=== PATIENT | female | born 1960 | race Caucasian/White ===

== ENCOUNTER 2017-01-01 12:24 | Day surgery (SDC) | payer BC ==
[2006-05-18 18:47] VITALS: BP 103/54
[~2017-01-01] VITALS: Ht 175.4 cm; Wt 95.4 kg
[~2017-01-01 12:24] MED LIST: ASPIRIN 81M81 MG/TA2 PO; PREDNISONE20 MG PO; TOPROL XL 25MG25 MG; TOPROL XL 25MG25 MG PO
[2017-01-01 13:38] LABS: HEMATOCRIT 39.9 % (37.0-47.0); HEMOGLOBIN 13.5 g/dl (12.5-16.0); MEAN CELL VOLUME 84 fl (80.0-100.0); MEAN CORPUSCULAR HEMOGLOBIN 29 pg (27.0-31.0); MEAN CORPUSCULAR HGB CONC 34 g/dl (33.0-37.0); PLATELET COUNT 255 K/mm3 (130-400); RED BLOOD COUNT 4.74 M/mm3 (4.10-5.30); REDCELL DISTRIBUTION WIDTH-CV 12.9 % (11.5-14.5); WHITE BLOOD COUNT 9.3 K/mm3 (4.8-10.8)
[2017-01-01 13:42] LABS: INR 1.1 (0.8-3.0); PROTHROMBIN TIME 12.7 SECONDS (9.7-12.8)
[2017-01-01 13:49] LABS: CALCIUM 9.1 mg/dL (8.4-10.2); CREATININE, serum 0.53 mg/dL (0.52-1.25)
[2017-01-01 14:28] VITALS: BP 137/88; PULSE 126; TEMP 98.3
[2017-01-01 15:15] VITALS: BP 104/71; PULSE 84
[2017-01-01 15:30] VITALS: BP 117/73; PULSE 80
[2017-01-01 16:00] VITALS: BP 123/79; PULSE 82
[2017-01-01 16:15] VITALS: BP 118/70; PULSE 79
[2017-01-01] MEDS ORDERED: XARELTO20 MG PO (16:17)
== END 2017-01-01 16:35 ==
LOC: COL.CAR 12:24
PROVIDERS: Internal Medicine Cardiovascular Disease
DX: I48.0 Paroxysmal atrial fibrillation (principal); Q21.1 Atrial septal defect; I35.1 Nonrheumatic aortic (valve) insufficiency; I10 Essential (primary) hypertension; E66.9 Obesity, unspecified; Z87.891 Personal history of nicotine dependence
CPT/HCPCS: G9654; J2704; J3010

== ENCOUNTER 2017-01-31 10:31 | Day surgery (SDC) | payer BC ==
[~2017-01-31] VITALS: Ht 175.4 cm; Wt 95.0 kg
[2017-01-31] VITALS (9 sets, daily range): BP systolic 108–156; BP diastolic 67–120; PULSE 78–140; TEMP 98.1
[~2017-01-31 10:31] MED LIST changes: +XARELTO20 MG PO
[2017-01-31 11:03] LABS: HEMATOCRIT 42.9 % (37.0-47.0); HEMOGLOBIN 14.7 g/dl (12.5-16.0); MEAN CELL VOLUME 82 fl (80.0-100.0); MEAN CORPUSCULAR HEMOGLOBIN 28 pg (27.0-31.0); MEAN CORPUSCULAR HGB CONC 34 g/dl (33.0-37.0); MEAN PLATELET VOLUME 9.7 fl (7.4-10.4); PLATELET COUNT 269 K/mm3 (130-400); RED BLOOD COUNT 5.23 M/mm3 (4.10-5.30); REDCELL DISTRIBUTION WIDTH-CV 12.5 % (11.5-14.5); WHITE BLOOD COUNT 8.3 K/mm3 (4.8-10.8)
[2017-01-31 11:08] LABS: INR 1.7 (0.8-3.0); PROTHROMBIN TIME 19.2 SECONDS (9.7-12.8)
[2017-01-31 11:13] LABS: CALCIUM 9.5 mg/dL (8.4-10.2); CREATININE, serum 0.52 mg/dL (0.52-1.25); POTASSIUM 4.2 mmol/L (3.4-5.0)
[2017-01-31] MEDS ORDERED: ADVIL200 MG PO (11:15)
[2017-01-31] MEDS ORDERED: TAMBOCOR 1100 MG/TAB PO (12:55)
[2017-01-31] MEDS ORDERED: RESTORIL 1515 MG/CAP PO (12:55)
== END 2017-01-31 14:22 | disposition home or self-care (01) ==
LOC: COL.CAR 10:31
PROVIDERS: Internal Medicine Cardiovascular Disease
DX: I48.91 Unspecified atrial fibrillation (principal); Z79.01 Long term (current) use of anticoagulants
CPT/HCPCS: J2704

== ENCOUNTER → 2017-10-03 | Outpatient (CLI) | payer BC ==
[~2017-10-03] MED LIST changes: +ADVIL200 MG PO; +RESTORIL 1515 MG/CAP PO; +TAMBOCOR 1100 MG/TAB PO
== END ==
LOC: MC.RAD 09:20
DX: Z12.31 Encounter for screening mammogram for malignant neoplasm of breast (principal)

== ENCOUNTER 2018-12-30 16:09 | Inpatient (IN) | payer BC ==
[~2018-12-30] VITALS: Ht 175.3 cm; Wt 95.1 kg
[~2018-12-30 16:09] MED LIST changes: +BETAPACE 80MG80 MG PO; +TIAZAC360 MG PO
[2018-12-30] MEDS ORDERED: ASPIRIN 81M81 MG/TA2 PO (16:31)
[2018-12-30 16:34] LABS: BASO % 0.5 % (0.0-2.0); EOS # 0.1 (0.0-0.7); EOS % 1.8 % (0-4.0); GRAN # 4.4 (1.4-6.5); GRAN % 56.6 % (42.2-75.2); HEMATOCRIT 40.5 % (37.0-47.0); HEMOGLOBIN 14.1 g/dl (12.5-16.0); LYMPH # 2.7 (1.2-3.4); LYMPH % 35.1 % (20.0-51.0); MEAN CELL VOLUME 83 fl (80.0-100.0); MEAN CORPUSCULAR HEMOGLOBIN 29 pg (27.0-31.0); MEAN CORPUSCULAR HGB CONC 35 g/dl (33.0-37.0); MEAN PLATELET VOLUME 9.9 fl (7.4-10.4); MONO # 0.4 (0.1-0.6); MONO % 5.7 % (1.7-9.3); PLATELET COUNT 235 K/mm3 (130-400); RED BLOOD COUNT 4.88 M/mm3 (4.10-5.30); REDCELL DISTRIBUTION WIDTH-CV 12.6 % (11.5-14.5)
[2018-12-30 17:01] LABS: ALANINE AMINOTRANSFERASE 33 U/L (9-52); ALBUMIN 4.1 gm/dL (3.5-5.0); ALKALINE PHOSPHATASE 71 U/L (50-136); ANION GAP 9 mmol/L (7-16); AST,SGOT 28 U/L (15-37); BILIRUBIN,TOTAL 0.6 mg/dL (0.0-1.0); BLOOD UREA NITROGEN 7 mg/dL (7-17); CALCIUM 9.4 mg/dL (8.4-10.2); CARBON DIOXIDE 29 mmol/L (22-30); CHLORIDE 103 mmol/L (98-107); GLUCOSE 115 mg/dL (74-106); POTASSIUM 3.6 mmol/L (3.4-5.0); SODIUM 142 mmol/L (137-145); TOTAL PROTEIN 7.3 gm/dL (6.4-8.2)
[2018-12-30 17:09] LABS: INR 1.1 (0.8-3.0); PROTHROMBIN TIME 12.4 SECONDS (9.7-12.8)
[2018-12-30 17:17] LABS: PROLACTIN 36.7 ng/mL (3.0-18.6); TROPONIN-I < 0.012 ng/mL (0.000-0.035)
[2018-12-30 17:21] LABS: D-DIMER < 200.00 ng/mLDDu (200-230)
[2018-12-30 19:59] LABS: MAGNESIUM 1.9 mg/dL (1.6-2.3)
[2018-12-30 20:16] LABS: TROPONIN-I < 0.012 ng/mL (0.000-0.035)
--- NOTE | 2018-12-30 20:28 | NUR ---
Called over to ED at this time and received from from AP Christina.
[2018-12-30 20:35] VITALS: BP 139/91; PULSE 124
--- NOTE | 2018-12-30 20:35 | NUR ---
Patient arrives at this time via ED cart. Patient ambulates to unit bed. She is steady on her feet and independent. Patient lays down in bed. Applied unit monitoring equipment to patient and oriented her and Rody (daughter) to unit and room. Assessment complete. She is alert and oriented x4. Lungs are clear in all [place] bilaterally. HR and rhythm are irregular with only first heart sound heard. Patient is in afib with rates that come up as high as 140's. Bowel sounds are active x4. Patient has no complaints of pain, just mild intermittent headache, but states she does not want anything for it. No skin issues observed. Obtained emergency contact information of daughter and . Patient does have her purse here with $126 in it, she refuses safe at this time. Patient also has cell phone, smart watch, and engagement ring and wedding band on. Patient again refuses safe for these belongings. Patient educated on drips she is on. Claude () arrives at end of assessment. Patient has no further needs at this time. Will continue to monitor. Call light within reach.
--- NOTE | 2018-12-30 20:35 | NUR ---
Patient brought over from ED with Cardizem drip at 10mg/hr. Will continue at this dose for now.
[2018-12-30 20:45] VITALS: PULSE 124
[2018-12-30 20:48] VITALS: BP 139/91; PULSE 124; TEMP 98.7
[2018-12-30] MEDS ORDERED: FLONASE NASAL S16 GM NS (20:55)
--- NOTE | 2018-12-30 21:10 | NUR ---
ANALI Canas calls at this time and states we are changing the patient to an esmolol bolus and drip. Called back at 2113to notify that her HR has been in the 90's, but periodically will get as high as 140's, but immediately comes back down. Provider states to still frame changer to esmolol.
[2018-12-30 22:19] VITALS: O2SAT 100
[2018-12-30 22:20] VITALS: PULSE 136
[2018-12-31] VITALS (10 sets, daily range): BP systolic 88–104; BP diastolic 53–76; PULSE 5–115; TEMP 98.3–98.8; O2SAT 94–96
--- NOTE | 2018-12-31 | NUR ---
Patient asleep at this time. Vitals obtained. Patient awakens easily to name/noise in the room. No complaints of pain. No further needs. Patient is now NPO for possible procedures in the morning. Vitals have remained stable. Patient remains in afib. No further needs at this time.
[2018-12-31 01:36] LABS: PH 8 (5-8); SQUAMOUS EPITHELIAL 0-2 /hpf; URINE APPEARANCE Clear; URINE BACTERIA None Seen /hpf; URINE BILIRUBIN Negative (NEGATIVE); URINE BLOOD Negative (NEGATIVE); URINE COLOR Yellow; URINE GLUCOSE Negative (NEGATIVE); URINE KETONE Negative (NEGATIVE); URINE LEUKOCYTE ESTERASE Negative (NEGATIVE); URINE NITRATE Negative (NEGATIVE); URINE PROTEIN(semi-quant) Negative (NEGATIVE); URINE RBC 0-2 /hpf; URINE UROBILINOGEN Negative (NEGATIVE)
[2018-12-31 01:38] LABS: COLLECTION METHOD CLEAN CATCH
--- NOTE | 2018-12-31 01:45 | NUR ---
Called into patient room at this time. Patient has complaints of sudden onset nausea and headache (aching to right side of head). Provided patient with emesis bag, HOB elevated. Spoke with patient regarding the medications I could give her to help. Zofran given as well as Ativan. Patient then produced 150ml of clear emesis with some particulates. Patient states after vomiting that she does feel better and her headache is going away. Remained with patient for a further 5mins until she began falling asleep. Will notify provider of change.
--- NOTE | 2018-12-31 02:45 | NUR ---
Patient sleeping soundly at this time. No further episodes of nausea or vomiting. Will continue to monitor. Call light within reach.
--- NOTE | 2018-12-31 04:00 | NUR ---
Patient asleep but awakens to name. Patient states she no longer has a headache or feels nauseated. Patient had been sleeping well. Vitals obtained and remain stable. Patient is still in afib. No complaints of pain. Patient has no other needs at this time. Will continue to monitor. Call light within reach.
[2018-12-31 05:21] LABS: BASO % 0.3 % (0.0-2.0); EOS % 0.3 % (0-4.0); GRAN # 6.6 (1.4-6.5); GRAN % 71.8 % (42.2-75.2); HEMATOCRIT 38.7 % (37.0-47.0); HEMOGLOBIN 12.9 g/dl (12.5-16.0); LYMPH # 2.1 (1.2-3.4); MEAN CELL VOLUME 86 fl (80.0-100.0); MEAN CORPUSCULAR HEMOGLOBIN 29 pg (27.0-31.0); MEAN CORPUSCULAR HGB CONC 33 g/dl (33.0-37.0); MEAN PLATELET VOLUME 9.8 fl (7.4-10.4); MONO # 0.4 (0.1-0.6); MONO % 4.3 % (1.7-9.3); PLATELET COUNT 246 K/mm3 (130-400); RED BLOOD COUNT 4.52 M/mm3 (4.10-5.30); REDCELL DISTRIBUTION WIDTH-CV 12.9 % (11.5-14.5)
[2018-12-31 05:36] LABS: CALCIUM 8.7 mg/dL (8.4-10.2); CREATININE, serum 0.58 (0.52-1.25); POTASSIUM 4.1 mmol/L (3.4-5.0)
--- NOTE | 2018-12-31 07:30 | NUR ---
Report received from Linda DE SOUZA and care resumed.
--- NOTE | 2018-12-31 07:37 | NUR ---
Bedside report given to AP Canales. and daughter at bedside. All lines and medications reviewed. Transfer of care at this time.
--- NOTE | 2018-12-31 09:03 | NUR ---
FAYE met with the patient, her , Claude and daughter Nanci to discuss a discharge plan. The pt lives about 10 miles outside of [place] with Claude. The pt does not have DME and reports independence with ADLs. The pt's PCP Dr. Morrow and receives her medications from [facility] in [facility] with no difficulties. The pt does have advanced directives in the EMR designating her Claude and daughter Nanci. The pt plans to return home upon discharge. There are no additional needs at this time. Claude De Leon Nanci Fuentes
--- NOTE | 2018-12-31 09:05 | NUR ---
Dr Bassett in to see pt at this time.
--- NOTE | 2018-12-31 09:55 | NUR ---
Dr Bassett and anesthesia at bedside. Time out performed and pt cardioverted. Tolerated procedure well. See anesthesia record. Will continue to follow.
--- NOTE | 2018-12-31 10:10 | NUR ---
Dr Lewis in to see pt at this time.
[2018-12-31] MEDS ORDERED: BETAPACE 120MG120 MG PO (14:44)
[2018-12-31] MEDS ORDERED: BETAPACE 80MG80 MG PO (14:44)
[2018-12-31] MEDS ORDERED: XARELTO20 MG PO (14:47)
--- NOTE | 2018-12-31 15:05 | NUR ---
Discharge orders received.
--- NOTE | 2018-12-31 15:15 | NUR ---
Pt INT dc'd and pt dressed. Given discharge instructions. Pt taken out to private car for discharge.
== END 2018-12-31 15:10 | disposition home or self-care (01) | DRG 310 ==
LOC: COL.ER 16:09 → ICU 17:29
PROVIDERS: Emergency Medicine; Nurse Practitioner Family; ADMIT Internal Medicine
PROC: 5A2204Z Restoration of Cardiac Rhythm, Single (ICD-10-PCS; principal; 2018-12-31)
DX: I48.0 Paroxysmal atrial fibrillation (principal); Z87.891 Personal history of nicotine dependence; Z88.2 Allergy status to sulfonamides; E87.6 Hypokalemia
CPT/HCPCS: 99222-AI; J1650; J2060; J2405; J2550; J7030

== ENCOUNTER 2019-03-27 10:20 | Day surgery (SDC) | payer BC ==
[2006-05-18 18:47] VITALS: BP 103/54
--- NOTE | 2019-03-26 16:19 | NUR ---
Patient notified by this nurse that procedure time has been changed.Spoke with brissaNurse at office.Per anesthesia,they can do at 1230.Pt verbalizes understanding.Pre op instructions given to pt.
[2019-03-27] VITALS (7 sets, daily range): BP systolic 111–129; BP diastolic 70–88; PULSE 70–81; TEMP 98.5
[~2019-03-27] VITALS: Ht 175.3 cm; Wt 83.4 kg
[~2019-03-27 10:20] MED LIST changes: +BETAPACE 120MG120 MG PO; +FLONASE NASAL S16 GM NS
[2019-03-27] MEDS ORDERED: XARELTO20 MG PO (10:40)
[2019-03-27] MEDS ORDERED: BETAPACE 80MG80 MG PO (10:41)
[2019-03-27 11:16] LABS: HEMATOCRIT 41.3 % (37.0-47.0); MEAN CELL VOLUME 83 fl (80.0-100.0); MEAN CORPUSCULAR HEMOGLOBIN 28 pg (27.0-31.0); MEAN CORPUSCULAR HGB CONC 34 g/dl (33.0-37.0); MEAN PLATELET VOLUME 9.9 fl (7.4-10.4); PLATELET COUNT 267 K/mm3 (130-400); RED BLOOD COUNT 4.97 M/mm3 (4.10-5.30); REDCELL DISTRIBUTION WIDTH-CV 12.9 % (11.5-14.5)
[2019-03-27 11:17] LABS: INR 1.7 (0.8-3.0); PROTHROMBIN TIME 20.1 SECONDS (9.7-12.8)
[2019-03-27 11:20] LABS: CALCIUM 9.1 mg/dL (8.4-10.2); CREATININE, serum 0.48 (0.52-1.25); MAGNESIUM 1.7 mg/dL (1.6-2.3)
[2019-03-27 11:51] LABS: THYROID STIMULATING HORMONE 4.4 uIU/mL (0.465-4.680)
--- NOTE | 2019-03-27 13:54 | NUR ---
Discharge instructions given to pt.pt verbalizes understanding.INT removed,catheter tip intact.pt escorted out via wheelchair by student nurse.
--- NOTE | 2019-03-27 14:36 | NUR ---
1350 - Pt has been awake and alert since handoff from cathlab rn. Pt remains aao x 4, has had clear and unlabored respirations throughout, remains in SR 70's throughout recovery. Pt is ambulatory in room with steady gait, ready for discharge. Saline lock dc'd, cath intact, dressing applied. pt escorted to exit with via wheelchair.
== END 2019-03-27 15:52 | disposition home or self-care (01) ==
LOC: COL.CAR 10:20
PROVIDERS: Internal Medicine Cardiovascular Disease
DX: I48.0 Paroxysmal atrial fibrillation (principal); Z88.2 Allergy status to sulfonamides; Z79.82 Long term (current) use of aspirin; Z79.51 Long term (current) use of inhaled steroids; Z79.01 Long term (current) use of anticoagulants
CPT/HCPCS: J2704

== ENCOUNTER → 2019-07-22 | Outpatient (CLI) | payer BC | LOC: MC.RAD 08:30 | DX: Z12.31 Encounter for screening mammogram for malignant neoplasm of breast (principal) ==

== ENCOUNTER → 2020-04-18 | Outpatient (CLI) | payer BC | LOC: ZCOL.LAB 17:29 | DX: U07.1 COVID-19 (principal) ==

== ENCOUNTER 2021-08-16 08:46 | Emergency (ER) | payer BC ==
[~2021-08-16] VITALS: Ht 175.3 cm; Wt 90.9 kg
[~2021-08-16 08:46] MED LIST changes: +ELIQUIS 5MG PO; +LIPITOR20 MG PO
[2021-08-16 08:56] VITALS: TEMP 98.1
[2021-08-16 09:25] LABS: BASO # 0.1 K/mm3 (0.0-0.2); EOS # 0.1 K/mm3 (0.0-0.7); EOS % 0.9 % (0.0-4.0); GRAN # 4.4 K/mm3 (1.4-6.5); GRAN % 57.5 % (42.2-75.2); HEMATOCRIT 41.6 % (37.0-47.0); LYMPH # 2.7 K/mm3 (1.2-3.4); MEAN CELL VOLUME 85 fl (80.0-100.0); MEAN CORPUSCULAR HEMOGLOBIN 29 pg (27-31); MEAN CORPUSCULAR HGB CONC 34 g/dl (33.0-37.0); MEAN PLATELET VOLUME 9.9 fl (7.4-10.4); MONO # 0.4 K/mm3 (0.1-0.6); MONO % 5.3 % (1.7-9.3); PLATELET COUNT 285 K/mm3 (130-400); REDCELL DISTRIBUTION WIDTH-CV 12.8 % (11.5-14.5)
[2021-08-16 09:36] LABS: ALANINE AMINOTRANSFERASE 33 U/L (0-55); ALKALINE PHOSPHATASE 73 U/L (40-150); ANION GAP 7 mmol/L (7-16); AST,SGOT 22 U/L (5-34); BLOOD UREA NITROGEN 12 mg/dL (10-20); CALCIUM 9.1 mg/dL (8.4-10.2); CARBON DIOXIDE 28 mmol/L (23-31); CHLORIDE 106 mmol/L (98-107); CREATININE, serum 0.67 mg/dL (0.57-1.11); GLUCOSE 114 mg/dL (70-99); SODIUM 141 mmol/L (136-145); TOTAL PROTEIN 7.5 gm/dL (6.2-8.1)
[2021-08-16 09:43] LABS: TROPONIN-I < 0.010 ng/mL (0.00-0.033)
[2021-08-16 09:49] LABS: INR 1.9 (0.8-3.0); PROTHROMBIN TIME 20.7 SECONDS (9.7-12.8)
[2021-08-16 09:52] LABS: PARTIAL THROMBOPLASTIN TIME 38.3 SECONDS (26.0-37.0)
[2021-08-16] MEDS ORDERED: BETAPACE 80MG80 MG PO (12:35)
[2021-08-16 13:12] VITALS: BP 114/77; PULSE 77
== END 2021-08-16 13:20 | disposition home or self-care (01) ==
LOC: COL.ER 08:46
PROVIDERS: Family Medicine
DX: I48.20 Chronic atrial fibrillation, unspecified (principal); Z95.9 Presence of cardiac and vascular implant and graft, unspecified; Z98.890 Other specified postprocedural states; Z79.01 Long term (current) use of anticoagulants
CPT/HCPCS: J2704

== ENCOUNTER → 2021-09-19 | Outpatient (CLI) | payer BC, OTHER | LOC: MC.RAD 07:48 | DX: Z12.31 Encounter for screening mammogram for malignant neoplasm of breast (principal) ==